=== PATIENT | female | born 1965 | race Caucasian/White ===

== ENCOUNTER 2020-10-07 23:25 | Emergency (ER) | payer OTHER ==
[2020-10-08 00:09] LABS: Urine Blood 2+ (Negative); Urine Glucose Negative (Negative); Urine Protein 1+ (Negative); Urine Specific Gravity 1.025 (1.005-1.030); Urine pH 6.5 (5.0-7.0)
[2020-10-08 00:16] LABS: Hematocrit 35.3 % (36.0-45.0); Lymphocytes % 23.1 % (15.3-44.8); MPV 8.7 fL (7.6-11.3); RBC Red Blood Cell Count 3.86 M/uL (3.86-4.86)
[2020-10-08] MEDS ORDERED: ONDANSETRON 4 MG/2 ML VIAL ONE (00:26)
[2020-10-08 00:33] LABS: ALT/SGPT 58 U/L (12-78); AST/SGOT 57 U/L (15-37); Albumin 3.1 g/dL (3.4-5.0); Alkaline Phosphatase 100 U/L (45-117); BUN Blood Urea Nitrogen 19 mg/dL (7-18); Bicarbonate 24 mmol/L (21-32); Bilirubin Direct < 0.1 mg/dL (0-0.2); Bilirubin Total 0.3 mg/dL (0.2-1.0); Glucose Level 116 mg/dL (74-106); Lipase 59 U/L (73-393); Potassium 3.7 mmol/L (3.5-5.1); Protein, Total 7.1 g/dL (6.4-8.2); Sodium Level 138 mmol/L (136-145)
[2020-10-08] MEDS ORDERED: NA CHLORIDE 0.9% 1,000 ML ONE (00:53)
[2020-10-08] MEDS ORDERED: MORPHINE 4 MG/ML SYR ONE (00:53)
[2020-10-08] MEDS ORDERED: KETOROLAC 30 MG/ML INJ ONE (03:02)
[2020-10-08] MEDS ORDERED: CEFTRIAXONE/SWI 1gm 1 GM/10 ML SYR ONE (03:02)
--- NOTE | 2020-10-08 04:41 | ER ---
Nurse's Notes [facility] Name: Tram Winchester Age: 55 yrs Sex: Female : 1965 Arrival Date: 10/07/2020 Time: 23:31 Bed 5 Private MD: Diagnosis: Pyelonephritis Presentation: 10/07 23:44 Ebola Screen: No symptoms or risks identified at this time. Risk Assessment: Do you lp1 want to hurt yourself or someone else? Patient reports no desire to harm self or others. 23:44 Method Of Arrival: Ambulatory lp1 23:53 Chief complaint: Patient states: I have been having a constant sensation of needing to jb4 urinate. About 3 hours ago I had a sudden pain in the left side of my lower back that is now radiating to the front. Coronavirus screen: Client denies travel out of the [place] in the last 14 days. Initial Sepsis Screen: Does the patient meet any 2 criteria? No. Patient's initial sepsis screen is negative. Does the patient have a suspected source of infection? No. Patient's initial sepsis screen is negative. Onset of symptoms was October 07, 2020. Transition of care: patient was not received from another setting of care. 23:53 Acuity: WEI 3 jb4 Historical: - Allergies: 23:56 No Known Allergies; jb4 - Home Meds: 23:56 Lexapro Oral [Active]; jb4 - PMHx: 23:56 Anxiety; jb4 - PSHx: 23:56 sinus; Hysterectomy; Vein stripping; tummy tuck; breast augmentation; jb4 - Immunization history:: Adult Immunizations up to date. - Social history:: Smoking status: Patient denies any tobacco usage or history of. Patient/guardian denies using alcohol, street drugs. Screenin:44 Abuse screen: Denies threats or abuse. Denies injuries from another. Nutritional lp1 screening: No deficits noted. Tuberculosis screening: No symptoms or risk factors identified. Fall Risk None identified. Assessment: 23:57 General: Appears in no apparent distress. uncomfortable, Behavior is calm, cooperative, jb4 appropriate for age. Pain: Complains of pain in left low back Pain radiates to left lower quadrant Pain currently is 10 out of 10 on a pain scale. Quality of pain is described as sharp. Neuro: Level of Consciousness is awake, alert, obeys commands, Oriented to person, place, time, situation. Cardiovascular: Patient's skin is warm and dry. Respiratory: Airway is patent Respiratory effort is even, unlabored, Respiratory pattern is regular, symmetrical. GI: No signs and/or symptoms were reported involving the gastrointestinal system. : No signs and/or symptoms were reported regarding the genitourinary system. EENT: No signs and/or symptoms were reported regarding the EENT system. Derm: Skin is intact, Skin is pink, warm \T\ dry. Musculoskeletal: Circulation, motion, and sensation intact. Range of motion: intact in all extremities. 10/08 01:00 Reassessment: Patient appears in no apparent distress at this time. Patient and/or jb4 family updated on plan of care and expected duration. Pain level reassessed. Patient is alert, oriented x 3, equal unlabored respirations, skin warm/dry/pink. 02:00 Reassessment: Patient appears in no apparent distress at this time. Patient and/or jb4 family updated on plan of care and expected duration. Pain level reassessed. Patient is alert, oriented x 3, equal unlabored respirations, skin warm/dry/pink. 03:00 Reassessment: Patient appears in no apparent distress at this time. Patient and/or jb4 family updated on plan of care and expected duration. Pain level reassessed. Patient is alert, oriented x 3, equal unlabored respirations, skin warm/dry/pink. 04:00 Reassessment: Patient appears in no apparent distress at this time. Patient and/or jb4 family updated on plan of care and expected duration. Pain level reassessed. Patient is alert, oriented x 3, equal unlabored respirations, skin warm/dry/pink. 04:53 Reassessment: Patient appears in no apparent distress at this time. Patient and/or jb4 family updated on plan of care and expected duration. Pain level reassessed. Patient is alert, oriented x 3, equal unlabored respirations, skin warm/dry/pink. Vital Signs: 10/07 23:53 BP 172 / 102; Pulse 79; Resp 18; Temp 98.4(O); Pulse Ox 99% on R/A; Weight 108.86 kg jb4 (R); Height 5 ft. 3 in. (160.02 cm) (R); Pain 10; 10/08 02:00 BP 162 / 103; Pulse 91; Resp 16; Pulse Ox 97% on R/A; jb4 03:00 BP 152 / 94; Pulse 84; Resp 16; Pulse Ox 94% on R/A; jb4 04:17 BP 118 / 90; Pulse 85; Resp 17; Pulse Ox 98% on R/A; jb4 10/07 23:53 Body Mass Index 42.51 (108.86 kg, 160.02 cm) jb4 ED Course: 10/07 23:31 Patient arrived in ED. am4 23:44 Marlin Delacruz, RN is Primary Nurse. lp1 23:44 Patient has correct armband on for positive identification. lp1 23:52 Bari Ceron MD is Attending Physician. 7 23:55 Triage completed. jb4 23:56 Arm band placed on right wrist. jb4 23:58 Primary Nurse role handed off by Marlin Delacruz, RN jb4 23:58 Tray Hoover RN is Primary Nurse. jb4 10/08 00:04 Inserted saline lock: 22 gauge in left antecubital area, using aseptic technique. Blood ds4 collected. 01:12 CT Stone Protocol In Process Unspecified. EDMS 04:40 Farzad Aguilar MD is Referral Physician. [facility] 04:54 No provider procedures requiring assistance completed. IV discontinued, intact, jb4 bleeding controlled, No redness/swelling at site. Pressure dressing applied. Administered Medications: 00:10 Drug: Zofran (Ondansetron) 4 mg Route: IVP; Site: left antecubital; jb4 00:40 Follow up: Response: No adverse reaction; Marked relief of symptoms jb4 01:30 Drug: NS 0.9% 1000 ml Route: IV; Rate: 1000 ml; Site: left antecubital; jb4 03:00 Follow up: Response: No adverse reaction; IV Status: Completed infusion; IV Intake: jb4 1000ml 01:30 Drug: morphine 4 mg Route: IVP; Site: left antecubital; jb4 02:00 Follow up: Response: No adverse reaction jb4 02:48 Drug: TORadol (ketorolac) 30 mg Route: IVP; Site: left antecubital; jb4 03:15 Follow up: Response: No adverse reaction; Marked relief of symptoms; Pain is decreased jb4 02:50 Drug: Rocephin (cefTRIAXone) 1 grams Route: IV; Rate: per protocol; Site: left jb4 antecubital; Intake: 03:00 IV: 1000ml; Total: 1000ml. jb4 Outcome: 04:41 Discharge ordered by MD. andrews 04:54 Discharged to home ambulatory, with family. jb4 04:54 Condition: stable 04:54 Discharge instructions given to patient, family, Instructed on discharge instructions, follow up and referral plans. medication usage, Demonstrated understanding of instructions, follow-up care, medications, Prescriptions given X 5 04:55 Patient left the ED. jb4 Signatures: Dispatcher [employer] EDMS Marlin Delacruz RN RN lp1 Mauricio Platt 4 Tray Hoover RN RN jb4 Bari Ceron MD MD 7 Olivia Nunez 4
--- NOTE | 2020-10-08 04:42 | EDPHYS ---
Physician Documentation [facility] Name: Tram Winchester Age: 55 yrs Sex: Female : 1965 Arrival Date: 10/07/2020 Time: 23:31 Bed 5 Private MD: ED Physician Bari Ceron HPI: 10/08 00:41 This 55 yrs old Female presents to ER via Ambulatory with complaints of Back mh7 Pain. 00:41 The patient complains of pain in the left flank. mh7 00:42 The pain radiates to the left lower quadrant. Onset: The symptoms/episode mh7 began/occurred last night. Modifying factors: The symptoms are alleviated by nothing. the symptoms are aggravated by movement, palpation/percussion. Associated signs and symptoms: Pertinent positives: dysuria, nausea, Pertinent negatives: diarrhea, dizziness, fever, urinary frequency, headache, hematuria, pain radiating to the lower extremities, vomiting. Severity of pain: At its worst the pain was moderate today, in the emergency department the pain is unchanged. Historical: - Allergies: 10/07 23:56 No Known Allergies; jb4 - Home Meds: 23:56 Lexapro Oral [Active]; jb4 - PMHx: 23:56 Anxiety; jb4 - PSHx: 23:56 sinus; Hysterectomy; Vein stripping; tummy tuck; breast augmentation; jb4 - Immunization history:: Adult Immunizations up to date. - Social history:: Smoking status: Patient denies any tobacco usage or history of. Patient/guardian denies using alcohol, street drugs. ROS: 10/08 00:42 Constitutional: Negative for fever, chills, and weight loss, Eyes: Negative for injury, mh7 pain, redness, and discharge, ENT: Negative for injury, pain, and discharge, Neck: Negative for injury, pain, and swelling, Cardiovascular: Negative for chest pain, palpitations, and edema, Respiratory: Negative for shortness of breath, cough, wheezing, and pleuritic chest pain, MS/Extremity: Negative for injury and deformity, Skin: Negative for injury, rash, and discoloration, Neuro: Negative for headache, weakness, numbness, tingling, and seizure, Psych: Negative for depression, anxiety, suicide ideation, homicidal ideation, and hallucinations, Allergy/Immunology: Negative for hives, rash, and allergies, Endocrine: Negative for neck swelling, polydipsia, polyuria, polyphagia, and marked weight changes, Hematologic/Lymphatic: Negative for swollen nodes, abnormal bleeding, and unusual bruising. Exam: 00:42 Head/Face: Normocephalic, atraumatic. Eyes: Pupils equal round and reactive to light, mh7 extra-ocular motions intact. Lids and lashes normal. Conjunctiva and sclera are non-icteric and not injected. Cornea within normal limits. Periorbital areas with no swelling, redness, or edema. Neck: Trachea midline, no thyromegaly or masses palpated, and no cervical lymphadenopathy. Supple, full range of motion without nuchal rigidity, or vertebral point tenderness. No Meningismus. Chest/axilla: Normal chest wall appearance and motion. Nontender with no deformity. No lesions are appreciated. Cardiovascular: Regular rate and rhythm with a normal S1 and S2. No gallops, murmurs, or rubs. Normal PMI, no JVD. No pulse deficits. Respiratory: Lungs have equal breath sounds bilaterally, clear to auscultation and percussion. No rales, rhonchi or wheezes noted. No increased work of breathing, no retractions or nasal flaring. Abdomen/GI: Soft, non-tender, with normal bowel sounds. No distension or tympany. No guarding or rebound. No evidence of tenderness throughout. 00:42 Skin: Warm, dry with normal turgor. Normal color with no rashes, no lesions, and no evidence of cellulitis. MS/ Extremity: Pulses equal, no cyanosis. Neurovascular intact. Full, normal range of motion. Neuro: Awake and alert, GCS 15, oriented to person, place, time, and situation. Cranial nerves II-XII grossly intact. Motor strength 5/5 in all extremities. Sensory grossly intact. Cerebellar exam normal. Normal gait. Psych: Awake, alert, with orientation to person, place and time. Behavior, mood, and affect are within normal limits. 00:42 Constitutional: The patient appears in no acute distress, alert, awake, uncomfortable. 00:42 Back: normal spinal alignment noted, CVA tenderness, that is moderate, is noted on the left, vertebral tenderness, is not appreciated, muscle spasm, is not present. Vital Signs: 10/07 23:53 BP 172 / 102; Pulse 79; Resp 18; Temp 98.4(O); Pulse Ox 99% on R/A; Weight 108.86 kg jb4 (R); Height 5 ft. 3 in. (160.02 cm) (R); Pain 10/10; 10/08 02:00 BP 162 / 103; Pulse 91; Resp 16; Pulse Ox 97% on R/A; jb4 03:00 BP 152 / 94; Pulse 84; Resp 16; Pulse Ox 94% on R/A; jb4 04:17 BP 118 / 90; Pulse 85; Resp 17; Pulse Ox 98% on R/A; jb4 10/07 23:53 Body Mass Index 42.51 (108.86 kg, 160.02 cm) [facility] MDM: 04:39 Differential diagnosis: nephrolithiasis, pyelonephritis, UTI, diverticulitis. Data [facility] reviewed: vital signs, nurses notes, lab test result(s), CBC, electrolytes, urinalysis, radiologic studies, CT scan. Data interpreted: Pulse oximetry: on room air is 98 %. Interpretation: normal. Counseling: I had a detailed discussion with the patient and/or guardian regarding: the historical points, exam findings, and any diagnostic results supporting the discharge/admit diagnosis, lab results, radiology results, the need for outpatient follow up, to return to the emergency department if symptoms worsen or persist or if there are any questions or concerns that arise at home. Response to treatment: the patient's symptoms have resolved after treatment, the patient's blood pressure is in an acceptable range, mental status has returned to baseline, the patient no longer shows bradycardia, the patient is not short of breath, the patient is not tachycardic, the patient's pain is gone, the patient's temperature has normalized. 04:41 Patient medically screened. [facility] 10/07 23:57 Order name: Basic Metabolic Panel; Complete Time: 02:35 [facility] 10/07 23:57 Order name: CBC with Diff; Complete Time: 02:35 [facility] 10/07 23:57 Order name: Hepatic Function; Complete Time: 02:35 [facility] 10/07 23:57 Order name: Lipase; Complete Time: 02:35 [facility] 10/08 00:09 Order name: Urine Dipstick-Ancillary EDMS 10/08 02:36 Order name: Urine Culture [facility] 10/07 23:57 Order name: IV Saline Lock; Complete Time: 00:10 [facility] 10/08 00:14 Order name: CT Stone Protocol [facility] 10/07 23:57 Order name: Labs collected and sent; Complete Time: 00:10 4 Administered Medications: 00:10 Drug: Zofran (Ondansetron) 4 mg Route: IVP; Site: left antecubital; jb4 00:40 Follow up: Response: No adverse reaction; Marked relief of symptoms jb4 01:30 Drug: NS 0.9% 1000 ml Route: IV; Rate: 1000 ml; Site: left antecubital; jb4 03:00 Follow up: Response: No adverse reaction; IV Status: Completed infusion; IV Intake: jb4 1000ml 01:30 Drug: morphine 4 mg Route: IVP; Site: left antecubital; jb4 02:00 Follow up: Response: No adverse reaction 4 02:48 Drug: TORadol (ketorolac) 30 mg Route: IVP; Site: left antecubital; jb4 03:15 Follow up: Response: No adverse reaction; Marked relief of symptoms; Pain is decreased jb4 02:50 Drug: Rocephin (cefTRIAXone) 1 grams Route: IV; Rate: per protocol; Site: left 4 antecubital; Disposition: 10/08/20 04:41 Discharged to Home. Impression: Pyelonephritis. - Condition is Stable. - Discharge Instructions: Pyelonephritis, Adult, [id number]. - Prescriptions for Zofran ODT 4 mg Oral tablet,disintegrating - place 1 tablet by TRANSLINGUAL route every 8 hours As needed; 6 tablet. ketorolac 10 mg Oral tablet - take 1 tablet by ORAL route every 8 hours As needed not to exceed 40 mg in 24hrs; 12 tablet. Pyridium 200 mg Oral Tablet - take 1 tablet by ORAL route every 8 hours for 2 days; 6 tablet. Tylenol- Codeine #3 300-30 mg Oral Tablet - take 2 tablets by ORAL route every 6 hours As needed; 20 tablet. Cipro 500 mg Oral Tablet - take 1 tablet by ORAL route every 12 hours for 10 days; 20 tablet. - Medication Reconciliation Form, Thank You Letter, Antibiotic Education, Prescription Opioid Use form. - Work release form (10/08/20 04:58). tt3 - Follow up: Private Physician; When: 1 - 2 days; Reason: Worsening of condition, Recheck today's complaints, Continuance of care, Re-evaluation by your physician. Follow up: Farzad Aguilar MD; When: 1 - 2 days; Reason: Worsening of condition, Recheck today's complaints. - Problem is new. - Symptoms have improved. Signatures: Dispatcher [employer] EDNJ Tray Hoover RN RN jb4 Bari Ceron MD MD mh7 Andrade Blue tt3 Corrections: (The following items were deleted from the chart) 04:55 04:41 10/08/2020 04:41 Discharged to Home. Impression: Pyelonephritis. Condition is jb4 Stable. Forms are Medication Reconciliation Form, Thank You Letter, Antibiotic Education, Prescription Opioid Use. Follow up: Private Physician; When: 1 - 2 days; Reason: Worsening of condition, Recheck today's complaints, Continuance of care, Re-evaluation by your physician. Follow up: Farzad Aguilar; When: 1 - 2 days; Reason: Worsening of condition, Recheck today's complaints. Problem is new. Symptoms have improved. mh7
[2020-10-08 05:09] VITALS: TEMP 98.4
[2020-10-08 05:14] VITALS: BP 118/90; O2SAT 98
--- NOTE | 2020-10-08 19:56 | RAD REPORT ---
EXAM DESCRIPTION: CT - Stone Protocol - 10/08/2020 6:13 am CLINICAL HISTORY: The patient is 55 years old and is Female; Flank pain;Abd pain TECHNIQUE: Axial computed tomography images of the abdomen and pelvis without intravenous contrast. Sagittal and coronal reformatted images were created and reviewed. This CT exam was performed usi ng one or more of the following dose reduction techniques: automated exposure control, adjustment o f the mA and/or kV according to patient size, and/or use of iterative reconstruction technique. COMPARISON: No relevant prior studies available. FINDINGS: Lung bases: Unremarkable. No mass. No consolidation. ABDOMEN: Liver: Unremarkable. Gallbladder and bile ducts: Unremarkable. No calcified stones. No ductal dilation. Pancreas: Unremarkable. No ductal dilation. Spleen: Unremarkable. No splenomegaly. Adrenals: Unremarkable. No mass. Kidneys and ureters: There is moderate left perinephric stranding and fluid. Mild left hydronephr osis. No clear evidence of obstructing stone. Stomach and bowel: Small hiatal hernia. Postsurgical changes in the rectosigmoid colon. No obstruction. No mucosal thickening. PELVIS: Appendix: No findings to suggest acute appendicitis. Bladder: Unremarkable. No stones. Reproductive: Unremarkable as visualized. ABDOMEN and PELVIS: Intraperitoneal space: Unremarkable. No free air. No significant fluid collection. Bones/joints: This space narrowing with degenerative endplate changes at T8-T9 and L5-S1. No acute fracture. No dislocation. Soft tissues: Bilateral breast implants. Vasculature: Unremarkable. No abdominal aortic aneurysm. Lymph nodes: Unremarkable. No enlarged lymph nodes. Other findings: Mild right pelviectasis. IMPRESSION: Moderate left perinephric stranding and fluid. Mild left hydronephrosis. No clear eviden ce of obstructing stone. Correlate with concern for pyelonephritis. Evaluation limited without IV c ontrast. Electronically signed by: Reji Pepper MD 10/08/2020 2:13 AM CDT Due to temporary technical issues with the PACS/Fluency reporting system, reports are being signed by the in house radiologists without review as a courtesy to insure prompt reporting. The interpreting radiologist is fully responsible for the content of the report.
== END 2020-10-08 04:55 | disposition home or self-care (01) ==
LOC: ER 23:25
DX: N12 Tubulo-interstitial nephritis, not specified as acute or chronic (principal); F41.9 Anxiety disorder, unspecified; Z98.82 Breast implant status
CPT/HCPCS: 85025; 80048; 36415; 80076; 81003; 83690; 76377; 74176; J0696; J7030; J2405; 96361; 96374; 96375; 99284